=== PATIENT | male | born 1965 | race Two or more races ===

== ENCOUNTER 2016-12-26 06:26 | Emergency (ER) | payer BC, MEDICAID ==
[~2016-12-26] VITALS: Ht 177.8 cm; Wt 90.7 kg
[~2016-12-26 06:26] MED LIST: LEVE1000 PO; LEVE500T9 PO
[2016-12-26] MEDS ORDERED: LOSA50TA21 PO (06:29)
--- NOTE | 2016-12-26 06:30 | NUR ---
To bed 6 a 51 yo male bibra with c/o seizure. Per ems patient's seen patient on the floor snoring and at post ictal phase, patient with history of seizure. Upon arrival to er patient is awake, oriented to name, with periods of confusion noted. Reorientation done. On room air patient is satting at 80's, was placed on paramedics on nonrebreather with O2 saturation 97% at this time. Seizure precautions and safety initiated. Gowned. monitoring specialist on. Awaiting for er md crenshaw.
--- NOTE | 2016-12-26 06:33 | NUR ---
Dr Singh at bedside for eval.
--- NOTE | 2016-12-26 06:40 | NUR ---
Patient taken to ct.
--- NOTE | 2016-12-26 06:49 | NUR ---
patient back from ct of head.
[2016-12-26] MEDS ORDERED: ONDANSETRON HCL/PF 4 MG/2 ML VIAL ONE (06:58)
[2016-12-26 07:02] LABS: ABG BASE EXCESS -6.5 mmol/L; ABG OXYGEN SATURATION 82.8 % (92.0-98.5); ABG PCO2 38.1 mmHg (35.0-45.0); ABG PH 7.316 (7.350-7.450); ABG PO2 50.7 mmHg (75.0-100.0); ABG TOTAL HEMOGLOBIN 16.7 G/dL (13.5-18.0); AaDO2 53.4 mmHg; COHb 1.4 % (0.5-1.5); MetHb 0.5 % (0.0-1.5); O2Hb 81.2 % (94.0-97.0); SITE, ABG Left Radial; VENT MODE, BG ROOM AIR
[2016-12-26 07:06] LABS: EOSINOPHILS # (AUTO) 0.1 /CMM (0.0-0.7); EOSINOPHILS % (AUTO) 1.1 % (0.0-6.0); HEMATOCRIT 48 % (39-51); HEMOGLOBIN 16.1 g/dL (13.5-17.5); LYMPHOCYTES # (AUTO) 1.5 /CMM (0.8-4.8); LYMPHOCYTES % (AUTO) 14.7 % (20.0-44.0); MEAN CORPUSCULAR HEMOGLOBIN 32 PG (26.0-33.0); MEAN CORPUSCULAR HGB CONC 34 g/dl (31.0-36.0); MEAN CORPUSCULAR VOLUME 95 fL (80-96); MONOCYTES # (AUTO) 0.3 /CMM (0.1-1.30); MONOCYTES % (AUTO) 3.3 % (2.0-12.0); NEUTROPHILS # (AUTO) 8.3 /CMM (1.8-8.9); NEUTROPHILS % (AUTO) 80.9 % (43.0-81.0); PLATELET COUNT (AUTO) 289 /CMM (150-450); RED BLOOD CELL COUNT(AUTO) 5.03 MIL/uL (4.5-6.0); WHITE BLOOD COUNT (AUTO) 10.3 K/uL (4.3-11.0)
--- NOTE | 2016-12-26 07:13 | NUR ---
left hand iv access, not flushing well, dc'd. started a saline lock on the right forearm g20
[2016-12-26 07:15] LABS: CALCIUM, SERUM 8.5 mg/dL (8.5-10.1); CREATININE 1.3 mg/dL (0.6-1.3); POTASSIUM 3.8 mmol/L (3.5-5.1)
--- NOTE | 2016-12-26 07:19 | NUR ---
placed on 4lpm o2 via nc, windy well at 96% o2 sat. Encouraged deep breathing exercises.
[2016-12-26 07:23] LABS: TROPONIN I 0.026 ng/mL (0.00-0.056)
--- NOTE | 2016-12-26 07:28 | NUR ---
pt resting in bed comfortably. nad noted. pt states relief after being placed on oxygen. currently at 4L saturation 94%. aao x3. continue to monitor closely.
[2016-12-26 07:30] LABS: INR 0.96 (0.87-1.13); PROTHROMBIN TIME 10.3 SECS (9.5-12.7)
[2016-12-26] MEDS ORDERED: ONDANSETRON HCL/PF 4 MG/2 ML VIAL IV ONE (07:30)
[2016-12-26] MEDS ORDERED: CT SWABBABLE VALVE TRANS SET 1 EA INFUS.SET MC ONE (07:43)
[2016-12-26] MEDS ORDERED: IV NS 0.9% 250 ML IV ONE (07:43)
[2016-12-26] MEDS ORDERED: IOHEXOL-350 100 ML VIAL IV ONE (07:43)
[2016-12-26 07:51] LABS: D-DIMER 8.77 mg/L(FEU (0.17-0.50)
--- NOTE | 2016-12-26 08:30 | NUR ---
PT BACK FROM CT SCAN
--- NOTE | 2016-12-26 09:13 | NUR ---
PT AMBULATED TO RESTROOM, AMBULATORY WITH STEADY GAIT.
--- NOTE | 2016-12-26 09:13 | NUR ---
CALLED DR BOATENG FOR ADMISSION
--- NOTE | 2016-12-26 09:53 | NUR ---
PER DR BOATENG WILL SEE PATIENT
[2016-12-26 10:31] VITALS: BP 152/93
[2016-12-26] MEDS ORDERED: PIPERACILLIN /TAZOBACTAM 3.375 G in IV D5W 50 ML IV ONE (11:30)
--- NOTE | 2016-12-26 11:34 | NUR ---
SPOKE WITH CORPORATE [employer] FROM [facility] - AWAITING PLACEMENT IN [facility]
[2016-12-26] MEDS ORDERED: IV SET PRIMARY PUMP SET 1 EA INFUS.SET MC ONE (11:43)
--- NOTE | 2016-12-26 12:00 | NUR ---
[id number]
--- NOTE | 2016-12-26 12:08 | NUR ---
CALLED [facility] ETA 30 MINUTES
--- NOTE | 2016-12-26 12:14 | NUR ---
REPORT GIVEN TO AURE SHEEHAN FOR JULIETTE TO [facility].
--- NOTE | 2016-12-26 12:53 | NUR ---
patient discharged to [facility] via ems in stable condition. patient and verbalized understanding of dc instructions. nad noted. pt aao x4, amb with steady gait. rr even and unlabored on 4l nc saturation 98%. no further complaints.
== END 2016-12-26 13:02 ==
LOC: ER 06:28
DX: G40.909 Epilepsy, unspecified, not intractable, without status epilepticus (principal); R09.02 Hypoxemia; R23.3 Spontaneous ecchymoses
CPT/HCPCS: 36600; 70450; 71010; 71275; 80048; 82542; 83880; 84484; 85025; 85378; 85730; 87081; 93005; 96365; 96375; 99285; A4606; J2405; J2543; J7050; J7060; Q9967; Z7610

== ENCOUNTER 2019-04-01 06:55 | Emergency (ER) | payer BC ==
[~2019-04-01] VITALS: Ht 180.3 cm; Wt 95.3 kg
[~2019-04-01 06:55] MED LIST changes: +LOSA50TA39 PO
--- NOTE | 2019-04-01 07:00 | NUR ---
PT [id number] C/O UNWITNESSED SEIZURE, PER EMS PT WAS FOUND BY IN POSTICTAL STATE. PT AXO4 UPON ARRIVAL. RESPIRATIONS EVEN AND UNLABORED. ACCORDING TO PT, COMPLIANT WITH SEIZURE MEDICATIONS. PT PUT ON THE PMO PROJECT MANAGER AND PULSE OX.
[2019-04-01 07:28] LABS: BASOPHILS % (AUTO) 0.4 % (0.0-2.0); EOSINOPHILS % (AUTO) 1.2 % (0.0-6.0); HEMATOCRIT 46 % (39-51); HEMOGLOBIN 16.1 g/dL (13.5-17.5); LYMPHOCYTES # (AUTO) 2.7 /CMM (0.8-4.8); LYMPHOCYTES % (AUTO) 26.5 % (20.0-44.0); MEAN CORPUSCULAR HGB CONC 35 g/dl (31.0-36.0); MEAN CORPUSCULAR VOLUME 98 fL (80-96); MONOCYTES # (AUTO) 0.5 /CMM (0.1-1.30); MONOCYTES % (AUTO) 4.7 % (2.0-12.0); NEUTROPHILS # (AUTO) 6.9 /CMM (1.8-8.9); NEUTROPHILS % (AUTO) 67.2 % (43.0-81.0); PLATELET COUNT (AUTO) 301 /CMM (150-450); RED BLOOD CELL COUNT(AUTO) 4.74 MIL/uL (4.5-6.0); WHITE BLOOD COUNT (AUTO) 10.2 K/uL (4.3-11.0)
[2019-04-01 07:35] LABS: CALCIUM, SERUM 8.8 mg/dL (8.5-10.1); CREATININE 1.4 mg/dL (0.6-1.3); POTASSIUM 3.8 mmol/L (3.5-5.1)
--- NOTE | 2019-04-01 07:35 | NUR ---
REPORT GIVEN TO ALEENA SHEEHAN FOR JULIETTE.
--- NOTE | 2019-04-01 08:32 | NUR ---
PT ASLEEP BUT EASILY AWAKEN BY VERBAL STIMULI. DENIES JOSHI, DIZZINESS, N/V, CP, SOB AT THIS TIME. ON SEIZURE PRECAUTION & WILL CONT TO MONITOR.
[2019-04-01] MEDS ORDERED: LEVETIRACETAM (500MG) 500 MG in IV NS 0.9% 100 ML IV SCH (09:30)
--- NOTE | 2019-04-01 09:52 | NUR ---
GIVEN KEPPRA 500MG IVPB, PT KHARI WELL.
--- NOTE | 2019-04-01 10:35 | NUR ---
Patient discharged to home in stable condition. Written and verbal after care instructions given. Patient verbalizes understanding of instruction. IV removed. Catheter intact and site benign. Pressure and 4x4 applied to site. No bleeding noted.
[2019-04-01 10:36] VITALS: BP 165/98
== END 2019-04-01 10:37 | disposition home or self-care (01) ==
LOC: ER 06:55
DX: G40.909 Epilepsy, unspecified, not intractable, without status epilepticus (principal); I10 Essential (primary) hypertension; F17.200 Nicotine dependence, unspecified, uncomplicated; Z79.899 Other long term (current) drug therapy
CPT/HCPCS: 36415; 80048; 85025; 96365; 99283; J1953; J7030